=== PATIENT | female | born 1980 | race Caucasian/White ===

== ENCOUNTER 2025-10-14 10:33 | Outpatient (OUT) | payer BC, SELFPAY ==
--- NOTE | 2025-10-14 11:00 | XR_ITS ---
The [address] [address] Patient Name: MELODY ARGUELLES MRN: [id number] date: 1980 Sex: F Assigned Patient Location: [facility] Current Patient Location: [facility] Accession/Order Number: [id number] Exam Date: 10/14/2025 10:50 Report Date: 10/14/2025 11:56 At the request of: VERONICA LEE Procedure: XR cervical spine 5V CLINICAL HISTORY: Neck and posterior left shoulder pain LEFT SHOULDER - 3 views COMPARISON: None AP, Y and Grashey views were obtained. There is no evidence of fracture or dislocation. There are no significant soft tissue abnormalities. XR/XR shoulder LT min 2V IMPRESSION: NO ACUTE BONY INJURY. CERVICAL SPINE - 5 views: COMPARISON: None AP, lateral, both oblique and odontoid views were obtained. There is straightening of the normal cervical lordosis. There is no evidence of compression fracture or displacement. The disc spaces are preserved. There is minor endplate spurring, greatest posteriorly at C5-6. There is no significant foraminal encroachment. The atlantoaxial relationship is maintained. There is no prevertebral soft tissue swelling. IMPRESSION: LOSS OF THE NORMAL CERVICAL LORDOSIS. NO ACUTE BONY FINDINGS. Impression dictated by: Nahomy Dsouza M.D. 10/14/2025 11:56 AM Dictation Location: [employer] Electronically authenticated by: [id number] Y Date: 10/14/2025 11:56
--- NOTE | 2025-10-14 11:00 | XR_ITS ---
The [address] [address] Patient Name: MELODY ARGUELLES MRN: [id number] date: 1980 Sex: F Assigned Patient Location: [facility] Current Patient Location: [facility] Accession/Order Number: [id number] Exam Date: 10/14/2025 10:50 Report Date: 10/14/2025 11:56 At the request of: VERONICA LEE Procedure: XR cervical spine 5V CLINICAL HISTORY: Neck and posterior left shoulder pain LEFT SHOULDER - 3 views COMPARISON: None AP, Y and Grashey views were obtained. There is no evidence of fracture or dislocation. There are no significant soft tissue abnormalities. XR/XR cervical spine 5V IMPRESSION: NO ACUTE BONY INJURY. CERVICAL SPINE - 5 views: COMPARISON: None AP, lateral, both oblique and odontoid views were obtained. There is straightening of the normal cervical lordosis. There is no evidence of compression fracture or displacement. The disc spaces are preserved. There is minor endplate spurring, greatest posteriorly at C5-6. There is no significant foraminal encroachment. The atlantoaxial relationship is maintained. There is no prevertebral soft tissue swelling. IMPRESSION: LOSS OF THE NORMAL CERVICAL LORDOSIS. NO ACUTE BONY FINDINGS. Impression dictated by: Nahomy Dsouza M.D. 10/14/2025 11:56 AM Dictation Location: [employer] Electronically authenticated by: [id number] Y Date: 10/14/2025 11:56
== END 2025-10-14 10:34 | disposition home or self-care (01) ==
LOC: RAD 10:39
PROVIDERS: PCP Nurse Practitioner; Visit Provider Nurse Practitioner
DX: M54.2 Cervicalgia (principal); M25.512 Pain in left shoulder; Z68.38 Body mass index [BMI] 38.0-38.9, adult; E66.811 Obesity, class 1
CPT/HCPCS: 72050; 73030